=== PATIENT | female | born 1995 | race Caucasian/White ===

== ENCOUNTER 2018-09-28 12:30 | Inpatient (IN) | payer OTHER ==
[~2018-09-28] VITALS: Ht 162.6 cm; Wt 63.0 kg
[2018-09-28] MEDS ORDERED: LACTATED RINGER'S 1,000 ML IV PRN (13:38)
[2018-09-28] MEDS ORDERED: OXYTOCIN 30 UNITS/LR 500 ML IV SCH ×5 (14:00→23:36)
[2018-09-28] MEDS ORDERED: IBUPROFEN 600 MG TAB PO PRN (14:00)
[2018-09-28] MEDS ORDERED: CARBOPROST 250 MCG INJ IM PRN (14:00)
[2018-09-28] MEDS ORDERED: LIDOCAINE 1% (MPF) 30 ML INJ INJ PRN (14:00)
[2018-09-28] MEDS ORDERED: BUTORPHANOL 2 MG INJ IV PRN ×2 (14:00)
[2018-09-28] MEDS ORDERED: MISOPROSTOL 200 MCG TAB PR PRN (14:00)
[2018-09-28] MEDS ORDERED: METHYLERGONOVINE 0.2 MG INJ IM PRN (14:00)
[2018-09-28] MEDS ORDERED: AMPICILLIN 2 GM/NS (PMX) 100 ML IV ONE (14:00)
[2018-09-28] MEDS ORDERED: OXYTOCIN 30 UNITS/LR 500 ML IV PRN (14:00)
[2018-09-28] MEDS: LACTATED RINGER'S 1,000 ML IV SCH (14:13)
[2018-09-28 15:34] VITALS: Ht 162.6 cm; Wt 63.0 kg
--- NOTE | 2018-09-28 17:10 | PREAC ---
Date/Time of Note Date/Time of Note DATE: 09/28/18 TIME: 17:09 Anesthesia Eval and Record Evaluation Time Pre-Procedure Interview DATE: 09/28/18 TIME: 17:09 Age 23 Sex female NPO: 8 hrs Preoperative diagnosis labor Planned procedure epidural Past Medical History Past Medical History: None Surgery & Anesthesia Issues No known issue Meds Anticoagulation: No Beta [place] within 24 hr: No Reason Beta [place] not given: Pt. not on B-[place] No Active Prescriptions or Reported Meds Current Medications Lactated Ringer's 1,000 ml @ 125 mls/hr Q8H IV Last administered on 09/28/18at 14:13; Admin Dose 125 MLS/HR; Start 09/28/18 at 13:38 Ampicillin 50 ml @ 100 mls/hr Q4H IV ; Start 09/28/18 at 18:00 Butorphanol Tartrate (Stadol) 1 mg Q2H PRN IV .PAIN SCALE 1-5; Start 09/28/18 at 14:00 Butorphanol Tartrate (Stadol) 2 mg Q2H PRN IV .PAIN SCALE 6-10; Start 09/28/18 at 14:00 Lidocaine (Xylocaine 1% (Mpf)) 30 ml ONCE PRN INJ .EPISIOTOMY; Start 09/28/18 at 14:00 Oxytocin/Lactated Ringer's 500 ml @ 500 mls/hr ONCE POST IV ; Start 09/28/18 at 14:00 Oxytocin/Lactated Ringer's 500 ml @ 125 mls/hr POST IV ; Start 09/28/18 at 14:00 Ibuprofen (Motrin) 600 mg ONCE PRN PO .PAIN 1-5; Start 09/28/18 at 14:00 Lactated Ringer's 1,000 ml @ 2,000 mls/hr Q30M PRN IV .ANESTHESIA Last administered on 09/28/18at 17:00; Admin Dose 2,000 MLS/HR; Start 09/28/18 at 13:38 Oxytocin/Lactated Ringer's 500 ml @ 0 mls/hr ONCE PRN IV .VAGINAL BLEEDING; Start 09/28/18 at 14:00 Methylergonovine Maleate (Methergine) 0.2 mg ONCE PRN IM .VAGINAL BLEEDING; Start 09/28/18 at 14:00 Carboprost Tromethamine (Hemabate) 250 mcg ONCE PRN IM .VAGINAL BLEEDING; Start 09/28/18 at 14:00 Misoprostol (Cytotec) 1,000 mcg ONCE PRN CA .VAGINAL BLEEDING; Start 09/28/18 at 14:00 Oxytocin/Lactated Ringer's 500 ml @ 0 mls/hr FOR AUGMENTATION IV ; Start 09/28/18 at 14:00 Oxytocin/Lactated Ringer's 500 ml @ 0 mls/hr FOR INDUCTION IV Last administered on 09/28/18at 16:05; Admin Dose 1 MLS/HR; Start 09/28/18 at 15:30 Meds reviewed: Yes Allergies Coded Allergies: No Known Allergy (Unverified , 12/15/15) Allergies Reviewed: Yes Labs/Studies Labs Reviewed: Reviewed by anesthesiologist Result Diagram: 09/28/18 1400 Laboratory Tests 09/28/18 14:00 Blood Bank Test 09/28/18 14:00 Antibody Screen NEGATIVE Blood Type O POSITIVE Rh Immune Globulin Candidate NO test: N/A Pre-procedure Exam Airway: Adequate mouth opening, Adequate thyromental dist Mallampati: Mallampati III Teeth: Normal Lung: Normal Heart: Normal ASA Physical Status ASA physical status: 2 Emergency: None Pre-operative Attestations Prior to commencing anesthesia and surgery, the patient was re-evaluated, there was verification of: *The patient's identity *The results of appropriate recent lab work and preoperative vital signs *The above evaluation not changing prior to induction *Anesthetic plan, risk benefits, alternative and complications discussed with patient/family; questions answered; patient/family understands, accepts and wishes to proceed. IAN GARDINER DO Sep 28, 2018 17:10
[2018-09-28] MEDS ORDERED: FENTAnyl 50 MCG/ML VIAL ONE (17:23)
[2018-09-28] MEDS ORDERED: FENTAnyl 2MCG/ML-ROPIV 0.2% 100 ML BAG EPI SCH (17:30)
[2018-09-28] MEDS ORDERED: NALOXONE (0.4 MG/ML) INJ IV PRN (17:30)
[2018-09-28] MEDS ORDERED: AMPICILLIN 1 GM/NS (PMX) 50 ML IV SCH (18:00)
--- NOTE | 2018-09-28 19:38 | PAC ---
Date/Time of Note Date/Time of Note DATE: 09/28/18 TIME: 19:38 Post-Anesthesia Notes Post-Anesthesia Note Activity: WNL Respiratory function: WNL Cardiovascular function: WNL Mental status: Baseline Pain reasonably controlled: Yes Hydration appropriate: Yes Nausea/Vomiting absent: Yes IAN GARDINER DO Sep 28, 2018 19:38
--- NOTE | 2018-09-28 20:15 | PREOPHP ---
DATE OF ADMISSION: 09/28/2018 HISTORY OF PRESENT ILLNESS: Lynette Duncan is a 23-year-old 3, para 1, EDC 09/25/2018 i ntrauterine at 40 weeks and 3 days gestational age, admitted for post-EDC induction. She d enies any vaginal bleeding or discharge. Positive movement. Her care took place at [facility]. PAST MEDICAL HISTORY: None. MEDICATIONS: vitamins. PAST SURGICAL HISTORY: None. OBSTETRICAL HISTORY: x1 vaginal delivery, x1 missed AB. GYNECOLOGIC HISTORY: 12, regular, 3 to 4 days. Denies any sexually transmitted infections. Sexuall y active with 1 partner. SOCIAL HISTORY: Denies any smoking, drugs, or alcohol. FAMILY HISTORY: None. REVIEW OF SYSTEMS: All within normal except history of present illness. PHYSICAL EXAMINATION: HEENT: Within normal. LUNGS: CTA bilateral. CARDIOVASCULAR: S1, S2, regular rhythm. ABDOMEN: Gravid, nontender. Negative CVA bilateral. EXTREMITIES: Negative edema. No calf tenderness. PELVIC: Vaginal exam 390 -2. heart tracing category 1. Tocometer irregular contractions. ASSESSMENT: Intrauterine at 40 weeks and 3 days gestational age, currently on Pitocin for post-EDC induction. PLAN: Anticipate vaginal delivery and GBS prophylaxis. Dictated By: TIGIST RIVERS/NAIMA Conf#: [id number] DID#: [id number]
[2018-09-28] MEDS ORDERED: MINERAL OIL LIGHT 10 ML VIAL ONE (23:29)
--- NOTE | 2018-09-28 23:35 | LDN ---
Date/Time of Note Date/Time of Note DATE: 09/28/18 TIME: 23:35 Delivery Summary Weeks of Gestation 40 Placenta Delivered: Spontaneously Meconium: none Episiotomy: No Estimated blood loss: 150 Sponge & Needle done & correct: Yes All needle counts correct: Yes Any foreign bodies felt in the: No Infant Delivery Information Sex Infant Sex: female Apgars 1 Minute: 8 5 Minute: 9 Suctioning Nose & mouth suctioned at brenda: No Delee suction performed: No Umbilical Cord Umbilical cord with: 3 Vessels Cord presentations: no nuchal cord Cord Blood was obtained: Yes TIGIST KNOX MD Sep 28, 2018 23:35
[2018-09-29] MEDS ORDERED: OXYTOCIN 30 UNITS/LR 500 ML IV PRN
[2018-09-29] MEDS ORDERED: CARBOPROST 250 MCG INJ IM PRN
[2018-09-29] MEDS ORDERED: NACL 0.9% 3 ML SYG IV SCH
[2018-09-29] MEDS ORDERED: MISOPROSTOL 200 MCG TAB PR PRN
[2018-09-29] MEDS ORDERED: OXYCODONE/ASPIRIN (4.88/325) TAB PO PRN ×2
[2018-09-29] MEDS ORDERED: ONDANSETRON 4 MG INJ IV PRN
[2018-09-29] MEDS ORDERED: BENZOCAINE 20% 56 ML SPRAY TOP PRN
[2018-09-29] MEDS ORDERED: ACETAMINOPHEN 325 MG TAB PO PRN
[2018-09-29] MEDS ORDERED: LANOLIN HPA 1 PKT TOP PRN
[2018-09-29] MEDS ORDERED: WITCH HAZEL/GLYCERIN PAD PR PRN
[2018-09-29] MEDS ORDERED: DIPHENHYDRAMINE 25 MG CAP PO PRN
[2018-09-29] MEDS ORDERED: METHYLERGONOVINE 0.2 MG INJ IM PRN
[2018-09-29] MEDS ORDERED: METHYLERGONOVINE 0.2 MG INJ ONE (01:00)
[2018-09-29 01:35] VITALS: BP 114/77; PULSE 68; RESP 19
[2018-09-29] MEDS: LACTATED RINGER'S 1,000 ML IV SCH ×4 (01:58→21:38)
[2018-09-29] MEDS: IBUPROFEN 600 MG TAB PO SCH ×5 (01:59→23:53)
[2018-09-29 02:35] VITALS: BP 118/79; PULSE 69; RESP 18
[2018-09-29 04:00] VITALS: BP 106/66; PULSE 66; RESP 18
--- NOTE | 2018-09-29 07:39 | DS ---
Date/Time of Note Date/Time of Note DATE: 09/29/18 TIME: 07:38 Obstetrical Discharge Record Final Diagnosis Final Diagnosis: Term delivered Vaginal Delivery Obstetrical Delivery: Spontaneous Condition on Discharge Physical Assessment Last Vitals: stable afebrile Voiding: Yes Bowel Movement: Yes Breast: Soft, non-tender, Filling Fundus: Firm Abdomen and Incision: soft nt Calf Tenderness: No Patient Condition: Fair TIGIST KNOX MD Sep 29, 2018 07:39
[2018-09-29 08:00] VITALS: BP 110/62; PULSE 56; RESP 16
[2018-09-29] MEDS: SENNA/DOCUSATE NA (8.6MG/50MG) TAB PO SCH ×2 (09:43→21:41)
[2018-09-29 17:16] VITALS: BP 106/56; PULSE 56; RESP 18
[2018-09-29 20:15] VITALS: BP 102/66; PULSE 70; RESP 17
[2018-09-30 04:00] VITALS: BP 109/55; PULSE 57; RESP 17
[2018-09-30] MEDS: IBUPROFEN 600 MG TAB PO SCH ×2 (05:32→12:00)
[2018-09-30 08:30] VITALS: BP 100/69; PULSE 70; RESP 18
[2018-09-30] MEDS: SENNA/DOCUSATE NA (8.6MG/50MG) TAB PO SCH (09:00)
[2018-09-30 16:28] VITALS: BP 98/55; PULSE 61; RESP 18
--- NOTE | 2018-10-01 17:24 | DELSUM ---
Delivery Summary A-C Datetime Report Generated by CPN: 10/01/2018 17:24 DELIVERY PERSONNEL Trainer: Tersigni, Francisca MATERNAL INFORMATION Delivery Anesthesia: Epidural Medications in Delivery: LR with 30 units of pitocin, Methergine 0.2 mg Delivery QBL (ml): 150 Placenta Cultured: No Maternal Complications: None; Other Other Maternal Complications: previous hemorrhage with last delivery LABOR SUMMARY EDC: 09/25/2018 00:00 No. Babies in Womb: 1 Attempted: No Labor Anesthesia: Epidural LABOR INFORMATION Reason for Induction: Other Reason for Induction- Other: post dates Onset of Labor: 09/28/2018 19:41 Complete Dilatation: 09/28/2018 23:22 Group B Beta Strep: Positive Antibiotics # of Doses: 2 Antibiotics Time of Last Dose: 09/28/2018 19:49 Steroids Given: None Reason Steroids Not Administered: Not Applicable MEMBRANES Membranes Rupture Method: Artificial Rupture of Membranes: 09/28/2018 19:42 Length of Rupture (hr): 3.77 Amniotic Fluid Color: Clear Amniotic Fluid Amount: Moderate Amniotic Fluid Odor: None STAGES OF LABOR Stage 1 hr: 3 Stage 1 min: 41 Stage 2 hr: 0 Stage 2 min: 6 Stage 3 hr: 0 Stage 3 min: 2 Total Time in Labor hr: 3 Total Time in Labor min: 49 VAGINAL DELIVERY Episiotomy: None Laceration Extension: N/A Laceration Type: None Laceration Repair: Not Applicable Initial Vag Sponge Count: 10 Final Vag Sponge Count: 10 Initial Vag Sharps Count: 1 Final Vag Sharps Count: 1 Sponge Count Correct: Yes; Vaginal Sweep Performed Sharps Count Correct: Yes BABY A INFORMATION Delivery Date/Time: 09/28/2018 23:28 Method of Delivery: Vaginal Born in Route : No : N/A Forceps: N/A Vacuum Extraction: N/A Shoulder Dystocia : N/A SHOULDER DYSTOCIA BABY A Delivery Date/Time: 09/28/2018 23:28 PRESENTATION/POSITION BABY A Presentation: Cephalic Cephalic Presentation: Vertex Vertex Position: Left Occipital Anterior Breech Presentation: N/A PLACENTA INFORMATION BABY A Placenta Delivery Time : 09/28/2018 23:30 Placenta Method of Delivery: Spontaneous Placenta Status: Delivered (Annotations: Data stored by N on behalf of user) SCORES BABY A Heart Rate 1 min: >100 bpm Resp Effort 1 min: Good Cry Reflex Irritability 1 min: Cough/Sneeze/Pulls Away Muscle Tone 1 min: Active Motion Color 1 min: Blue/Pale Resuscitation Effort 1 min: Tactile Stimulation SCORE 1 MIN: 8 Heart Rate 5 min: >100 bpm Resp Effort 5 min: Good Cry Reflex Irritability 5 min: Cough/Sneeze/Pulls Away Muscle Tone 5 min: Active Motion Color 5 min: Body [place], Extremit Blue Resuscitation Effort 5 min: Tactile Stimulation SCORE 5 MIN: 9 INFORMATION BABY A Gestational Age at Delivery: 40.3 Gestational Status: Full Term- 39- 40.6 Weeks Infant Outcome : Liveborn, with signs of life Condition : Stable Infant Sex: Female IDENTIFICATION/MEDS BABY A ID Band Number: [id number] ID Band Location: Right Leg; Left Arm Sensor Applied: Yes Sensor Number: [id number] Sensor Location : Cord Clamp Vitamin K Given : Not Given Erythromycin Given: Not Given WEIGHT/LENGTH BABY A Birthweight (gm): 3005 Infant Weight (lb): 6 Weight (oz): 10 Infant Length (in): 18.00 Infant Length (cm): 45.72 CORD INFORMATION BABY A No. Cord Vessels: 3 Nuchal Cord : N/A Cord Blood Taken: Yes Infant Suction: Mouth; Nose ASSESSMENT BABY A Complications: Multiple Variable Decels Physical Findings at Delivery: Molding of the Head; Within Normal Limits Respirations: Appears Normal Experimental Psychologist/ALS Called : No Care By: Nicole PEREZ Transferred To: Remains with Mother
== END 2018-09-30 16:35 | disposition home or self-care (01) | DRG 807 ==
LOC: L-D 12:52 → PP1 09-29 01:34
PROVIDERS: ADMIT Obstetrics & Gynecology; ATTEND Obstetrics & Gynecology
PROC: 3E033VJ Introduction of Other Hormone into Peripheral Vein, Percutaneous Approach (ICD-10-PCS; 2018-09-28)
PROC: 10E0XZZ Delivery of Products of Conception, External Approach (ICD-10-PCS; principal; 2018-09-28 12:30)
DX: O48.0 Post-term pregnancy (principal); Z37.0 Single live birth; Z3A.40 40 weeks gestation of pregnancy
CPT/HCPCS: 62322; 76815; 85025; 85610; 85730; 86592; 86850; 86900; 86901; 87340; J0290; J2210; J2405; J2590; J3010; J7120